=== PATIENT | male | born 1990 | race Caucasian/White ===

== ENCOUNTER 2018-11-30 23:15 | Emergency (ER) | payer OTHER ==
[~2018-11-30] VITALS: Ht 162.6 cm; Wt 77.1 kg
[2018-11-30 23:56] LABS: WBC 11.2 thou/uL (4.0-11.0)
[2018-11-30 23:58] LABS: ABSOLUTE NEUTROPHILS 6.6 thou/uL (1.4-8.2); BASOPHILS 0.8 % (0.0-2.0); EOSINOPHILS 2.3 % (0.0-3.0); HEMATOCRIT 45.2 % (42.0-52.0); HEMOGLOBIN 15.5 gm/dL (14.0-18.0); LYMPHOCYTES 30.3 % (24.0-44.0); MCH 29.8 pg (26.0-34.0); MCHC 34.4 g/dL (28.0-37.0); MCV 86.6 fL (80.0-100.0); MONOCYTES 7.3 % (1.0-8.0); PLATELET COUNT 305 thou/uL (150-400); POLYS 59.3 % (36.0-66.0); RBC 5.22 mil/uL (4.50-6.00); RDW 13.6 % (10.5-14.5)
[2018-11-30 23:59] LABS: ANION GAP 9 mmol/L (7-16); BUN 18 mg/dL (7-18); CHLORIDE 101 mmol/L (98-107); CO2 27 mmol/L (21-32); GLUCOSE 109 mg/dL (74-106); POTASSIUM 3.7 mmol/L (3.5-5.1); SODIUM 137 mmol/L (136-145)
[2018-12-01 00:08] LABS: ALBUMIN 4.2 g/dL (3.4-5.0); MAGNESIUM 1.8 mg/dL (1.8-2.4); SGOT 21 U/L (15-37); SGPT 21 U/L (30-65); TOTAL BILIRUBIN 0.8 mg/dL (<0.1-1.0); TOTAL PROTEIN 7.4 g/dL (6.4-8.2); TROPONIN-I <0.06 ng/mL (<0.06)
[2018-12-01 00:38] VITALS: BP 114/77
--- NOTE | 2018-12-01 08:07 | EKG ---
[place] [address] [facility] [place] [address] ELECTROCARDIOGRAM REPORT Name: FRANKOGISELE Room #: DEP BARBY Miller#: [id number] ������������������ Admission: 11/30/18 ������������������ Attend Phys: Discharge: 12/01/18 ������������������ Date of : 86 Report #: [id number] ����������������������������������������������������������������� [id number] THIS REPORT FOR: //name// [facility] ED Test Date: 2018-11-30 Test Time: 23:31:52 Pat Name: GISELE ABDUL Department: Room: Gender: Rating Clerk: [facility] : 1990 Requested By: Partha Severino Order Number: [id number] MD: Fernando Portillo Measurements Intervals [place] Rate: 71 P: 27 NV: 133 QRS: 32 QRSD: 89 T: 27 QT: 375 QTc: 408 Interpretive Statements Sinus rhythm RSR' in V1 or V2, probably normal variant No previous ECG available for comparison Electronically Signed On 12-01-2018 8:07:36 CDT by Fernando Portillo [email or web address] ��������������������������������������������� <ELECTRONICALLY SIGNED> ���������������������������������������� By: Fernando Portillo MD ��������������������������������������������� 12/01/18 [id number] Fernando Portillo MD /[email or web address]
== END 2018-12-01 00:41 | disposition home or self-care (01) ==
LOC: ER 23:15
PROVIDERS: Emergency Medicine
DX: R07.89 Other chest pain (principal); Z88.6 Allergy status to analgesic agent; Z88.1 Allergy status to other antibiotic agents; Z88.8 Allergy status to other drugs, medicaments and biological substances; Z88.2 Allergy status to sulfonamides